=== PATIENT | female | born 1955 | race Caucasian/White ===

== ENCOUNTER 2018-12-29 08:58 | Inpatient (IN) | payer OTHER ==
[~2018-12-29] VITALS: Ht 157.5 cm; Wt 79.9 kg
[2018-12-29] MEDS ORDERED: KETOROLAC TROMETHAMINE 30 MG/ML VIAL IV STA (09:10)
[2018-12-29] MEDS ORDERED: FAMOTIDINE 20 MG/2 ML VIAL IV STA (09:10)
[2018-12-29] MEDS ORDERED: SODIUM CHLORIDE 0.9% 1000ML 1,000 ML IV ONE (09:15)
[2018-12-29] MEDS ORDERED: DICYCLOMINE HCL 20 MG/2 ML VIAL IM ONE (09:15)
[2018-12-29] MEDS ORDERED: METOCLOPRAMIDE HCL 10 MG/2ML VIAL IV ONE (09:15)
[2018-12-29] MEDS ORDERED: VASOTEC10 M1 PO (09:23)
[2018-12-29] MEDS ORDERED: METOPROLOL TART50 MG PO (09:23)
[2018-12-29 09:56] LABS: BASOPHILS % 0.2 % (0.0-1.0); EOSINOPHILS # (AUTO) 0.1 (0.0-0.4); EOSINOPHILS % 0.6 % (0.0-6.0); HEMATOCRIT 36.6 % (34.2-44.1); HEMOGLOBIN 11.7 g/dL (12.0-16.0); LYMPHOCYTES # (AUTO) 0.7 (1.0-3.2); LYMPHOCYTES % 6.6 % (18.0-39.1); MEAN CORPUSCULAR HEMOGLOBIN 27.3 pg (28-32); MEAN CORPUSCULAR VOLUME 85.5 fL (81-99); MONOCYTES # (AUTO) 1.4 (0.2-0.8); MONOCYTES % 12.2 % (4.4-11.3); NEUTROPHILS # (AUTO) 8.9 (2.1-6.9); NEUTROPHILS % 79.8 % (38.7-80.0); PLATELET COUNT 195 x10e3/uL (140-360); RED BLOOD COUNT 4.28 x10e6/uL (3.6-5.1); RED CELL DISTRIBUTION WIDTH 15.9 % (11.7-14.4)
[2018-12-29 10:17] LABS: ALANINE AMINOTRANSFERASE 117 IU/L (0-55); ALBUMIN 2.8 g/dL (3.5-5.0); ALBUMIN/GLOBULIN RATIO 0.6 (0.8-2.0); ALKALINE PHOSPHATASE 526 IU/L (40-150); ANION GAP 14.4 mmol/L (8-16); BLOOD UREA NITROGEN 8 mg/dL (7-26); BUN/CREATININE RATIO 10 (6-25); CALCIUM 9.8 mg/dL (8.4-10.2); CARBON DIOXIDE 23 mmol/L (22-29); CHLORIDE 103 mmol/L (98-107); EST GLOMERULAR FILTRATION RATE > 60 ML/MIN (60-); GLUCOSE 124 mg/dL (74-118); LIPASE 26 U/L (8-78); POTASSIUM 3.4 mmol/L (3.5-5.1); SODIUM 137 mmol/L (136-145)
[2018-12-29] MEDS ORDERED: IOPAMIDOL 370 MG/ML 200 ML INFUS..BTL INJ ONE (12:14)
[2018-12-29] MEDS ORDERED: SODIUM CHLORIDE 0.9% 50ML 50 ML ONE (12:14)
[2018-12-29 13:20] LABS: BILIRUBIN,URINE 2+ (NEGATIVE); CLARITY,URINE SL CLOUDY (CLEAR); COLOR,URINE YELLOW (YELLOW); KETONES,URINE NEGATIVE (NEGATIVE); LEUKOCYTE ESTERASE ,URINE NEGATIVE (NEGATIVE); NITRITE,URINE NEGATIVE (NEGATIVE); PROTEIN,URINE DIPSTICK TRACE (NEGATIVE); URINE UROBILINOGEN 1 mg/dL (0.2 - 1)
[2018-12-29 13:31] LABS: BACTERIA,URINE FEW /HPF; EPITHELIAL CELLS,URINE MANY /LPF; TRANSITIONAL EPI CELLS,URINE MODERATE
--- NOTE | 2018-12-29 14:42 | Diagnostic Imaging Report ---
EXAM: CT Abdomen and Pelvis WITH contrast INDICATION: ^Evaluate for pancreatitis , pseudicyst , H/O Stent ^20181229 ^1100 COMPARISON: None. TECHNIQUE: Abdomen and pelvis were scanned utilizing a multidetector helical scanner from the lung base to the pubic symphysis after administration of IV contrast. Coronal and sagittal reformations were obtained. Dose modulation, iterative reconstruction, and/or weight based adjustment of the mA/kV was utilized to reduce the radiation dose to as low as reasonably achievable. Routine protocol was performed. Scan was performed when during portal venous phase. IV CONTRAST: 100 mL of Isovue-370 ORAL CONTRAST: Water COMPLICATIONS: None RADIATION DOSE: Total DLP: 741.29 mGy*cm Estimated effective dose: (DLP x 0.015 x size factor) mSv CTDIvol has been reviewed. It is below the limits set by the Radiation Protocol Committee (RPC). FINDINGS: LINES and TUBES: None. LOWER THORAX: Mild bibasilar linear atelectasis/scarring. HEPATOBILIARY: No focal hepatic lesions. Pneumobilia and moderate intrahepatic biliary dilatation. Common bile duct is markedly distended up to 1.8 cm with air-fluid. There is a stent extending from the distal common bile duct to the duodenum. GALLBLADDER: Absent. SPLEEN: Splenomegaly measuring 14.9 cm. PANCREAS: Pancreas is markedly atrophic, especially the body and tail. Irregular markedly distended pancreatic duct is ill-defined and measures up to 1.7 cm (series 2, image 31). There is edema surrounding the pancreas. The gastric antrum/duodenum is inseparable from pancreatic head and there is a suspected fistulous connection (series 2, image 30). The duodenal wall is thickened and there is mucosal hyperenhancement of the second and third portion. Also splenic flexure colon is pulled medially and there is a focal area that is inseparable from the pancreatic tissue or inflammation (series 2, image 25). ADRENALS: No adrenal nodules KIDNEYS/URETERS: Kidneys enhance symmetrically. No hydronephrosis. No renal mass. Right renal superior pole hypodensities are too small to characterize. No stones. GI TRACT: No evidence of bowel obstruction. There are diverticula within the colon without evidence of diverticulitis. Appendix is not visualized. Also see above. PELVIC ORGANS/BLADDER: Unremarkable. LYMPH NODES: Multiple peripancreatic/mesenteric lymph nodes, measuring up to 0.8 cm. There are also subcentimeter retroperitoneal lymph nodes. VESSELS: Significant narrowing/almost occlusion of the portal and splenic veins at the confluence. There is occlusion of the superior mesenteric vein. PERITONEUM / RETROPERITONEUM: No free air or fluid. BONES: Degenerative changes of spine. SOFT TISSUES: Unremarkable. IMPRESSION: 1. Pancreas is markedly atrophic, especially the body and tail. Irregular markedly distended pancreatic duct is ill-defined and measures up to 1.7 cm. There is edema surrounding the pancreas, consistent with history of pancreatitis. 2. Significant narrowing/almost occlusion of the portal and splenic veins at the confluence. Occluded superior mesenteric vein. 3. The gastric antrum/duodenum is inseparable from pancreatic head and there is a suspected fistulous connection. The duodenal wall is thickened and there is mucosal hyperenhancement of the second and third portion, representing duodenitis. 4. Splenic flexure colon is pulled medially and there is a focal area that is inseparable from the pancreas/peripancreatic inflammation, concerning for developing fistula. 5. Moderate intrahepatic biliary dilatation and pneumobilia. The common bile duct is also dilated with air and fluid, measuring up to 1.8 cm. The distal common bile duct is not well-visualized and is probably occluded by the pancreatic edema/inflammation. There is a stent within distal common bile duct. 6. Several peripancreatic and mesenteric reactive lymph nodes. Signed by: Dr. Mike King MD on 12/29/2018 2:38 PM
[2018-12-29] MEDS ORDERED: SODIUM CHLORIDE 0.9% 1000ML 1,000 ML IV SCH (14:55)
[2018-12-29] MEDS ORDERED: SODIUM CHLORIDE FLUSH 10 ML SYR INJ PRN (15:00)
[2018-12-29] MEDS ORDERED: ONDANSETRON HCL INJ 2MG/ML 2ML 2 MG/ML VIAL IV PRN (15:00)
[2018-12-29] MEDS ORDERED: MORPHINE SULFATE 2 MG/ML SYR 1ML IV PRN (15:00)
[2018-12-29] MEDS ORDERED: MORPHINE SULFATE INJ 4 MG/ML INJ 1ML IV PRN (15:15)
--- OUTSIDE RECORDS SUMMARY | 2018-12-29 15:46 | XMS REPORT ---
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 Allergies, Adverse Reactions, Alerts This patient has no known allergies or adverse reactions. Medications This patient has no known medications. Results Test Description Test Time Test Comments Text Results Atomic Results Result Comments CT ABDOMEN/PELVIS W 2018-12-29 14:06:00 [place] [address] Patient Name: MONY FIORE MR #: [id number] : 1955 Age/Sex: 63/F Req #: [id number] Adm Physician: Ordered by: ALDA SANDERSON MD Report #: [id number] Location: ER Room/Bed: Procedure: [id number] CT/CT ABDOMEN/PELVIS W Exam Date: 12/29/18 Exam Time: 1100 REPORT STATUS: Signed EXAM: CT Abdomen and Pelvis WITH contrast INDICA TION: Evaluate for pancreatitis , pseudicyst , H/O Stent [id number] COMPARISON: None. TECHNIQUE: Abdomen and pelvis were scanned utilizing a multidetector helical scanner from the lung base to the pubic symphysis after administration of IV contrast. Coronal and sagittal reformations were obtained. Dose modulation, iterative reconstruction, and/or weight based adjustment of the mA/kV was utilized to reduce the radiation dose to as low as reasonably achievable. Routine protocol was performed. Scan was performed when during portal venous phase. IV CONTRAST: 100 mL of Isovue-370 ORAL CONTRAST: Water COMPLICATIONS: None RADIATION DOSE: Total DLP: 741.29 mGy*cm Estimated effective dose: (DLP x 0.015 x size factor) mSv CTDIvol has been reviewed. It is below the limits set by the Radiation Protocol Committee (RPC). FINDINGS: LINES and TUBES: None. LOWER THORAX: Mild bibasilar linear atelectasis/scarring. HEPATOBILIARY: No focal hepatic lesions. Pneumobilia and moderate intrahepatic biliary dilatation. Common bile duct is markedly distended up to 1.8 cm with air-fluid. There is a stent extending from the distal common bile duct to the duodenum. GALLBLADDER: Absent. SPLEEN: Splenomegaly measuring 14.9 cm. PANCREAS: Pancreas is markedly atrophic, especially the body and tail. Irregular markedly distended pancreatic duct is ill-defined and measures up to 1.7 cm (series 2, image 31). There is edema surrounding the pancreas. The gastric antrum/duodenum is inseparable from pancreatic head and there is a suspected fistulous connection (series 2, image 30). The duodenal wall is thickened and there is mucosal hyperenhancement of the second and third portion. Also splenic flexure colon is pulled medially and there is a focal area that is inseparable from the pancreatic tissue or inflammation (series 2, image 25). ADRENALS: No adrenal nodules KIDNEYS/URETERS: Kidneys enhance symmetrically. No hydronephrosis. No renal mass. Right renal superior pole hypodensities are too small to characterize. No stones. GI TRACT: No evidence of bowel obstruction. There are diverticula within the colon without evidence of diverticulitis. Appendix is not visualized. Also see above. PELVIC ORGANS/BLADDER: Unremarkable. LYMPH NODES: Multiple peripancreatic/mesenteric lymph nodes, measuring up to 0.8 cm. There are also subcentimeter retroperitoneal lymph nodes. VESSELS: Significant narrowing/almost occlusion of the portal and splenic veins at the confluence. There is occlusion of the superior mesenteric vein. PERITONEUM / RETROPERITONEUM: No free air or fluid. BONES: Degenerative changes of spine. SOFT TISSUES: Unremarkable. IMPRESSION: 1. Pancreas is markedly atrophic, especially the body and tail. Irregular markedly distended pancreatic duct is ill-defined and measures up to 1.7 cm. There is edema surrounding the pancreas, consistent with history of pancreatitis. 2. Significant narrowing/almost occlusion of the portal and splenic veins at the confluence. Occluded superior mesenteric vein. 3. The gastric antrum/duodenum is inseparable from pancreatic head and there is a suspected fistulous connection. The duodenal wall is thickened and there is mucosal hyperenhancement of the second and third portion, representing duodenitis. 4. Splenic flexure colon is pulled medially and there is a focal area that is inseparable from the pancreas/peripancreatic inflammation, concerning for developing fistula. 5. Moderate intrahepatic biliary dilatation and pneumobilia. The common bile duct is also dilated with air and fluid, measuring up to 1.8 cm. The distal common bile duct is not well- visualized and is probably occluded by the pancreatic edema/inflammation. There is a stent within distal common bile duct. 6. Several peripancreatic a nd mesenteric reactive lymph nodes. Signed by: Dr. Mike Lemus MD on 12/29/2018 2:38 PM Dictated By: MIKE LEMUS MD [id number] Transcribed By: SHERYL on 12/29/18 1438 COPY TO: ALDA SANDERSON MD
[2018-12-29] MEDS: SODIUM CHLORIDE 0.9% 1000ML 1,000 ML IV SCH (16:50)
[2018-12-29] MEDS: CIPROFLOXACIN 400 MG/D5W 200ML 200 ML IV SCH (18:04)
[2018-12-29] MEDS: FAMOTIDINE 20 MG/2 ML VIAL IV SCH (18:06)
--- NOTE | 2018-12-29 18:36 | NUR ---
RECEIVED REPORT FROM JOAN IN ER , AWAITING FOR PT TO ARRIVE TO FLOOR
[2018-12-29 19:25] VITALS: BP 156/88
[2018-12-29 19:43] VITALS: BP 170/99
[2018-12-29] MEDS ORDERED: PROMETHAZINE HC25 M1 PO (20:09)
[2018-12-29] MEDS ORDERED: CETIRIZINE HCL10 MG PO (20:12)
[2018-12-29] MEDS: METRONIDAZOLE 500MG/NS 100ML 100 ML IV SCH (22:10)
--- NOTE | 2018-12-29 23:25 | NUR ---
RN with Dr. Martinez bedside explaining to the patient about the pancreas and the recommendations. The patient had all questions answered and will follow up with care in [place]
[2018-12-30] VITALS (8 sets, daily range): BP systolic 134–184; BP diastolic 74–100
[2018-12-30] MEDS ORDERED: PANTOPRAZOLE 40 MG 10ML VIAL IV STA (00:33)
[2018-12-30] MEDS: PANTOPRAZOL 40MG/SOD CHL 0.9% 50 ML IV SCH ×5 (00:46→21:55)
[2018-12-30] MEDS: SODIUM CHLORIDE 0.9% 1000ML 1,000 ML IV SCH ×3 (00:46→23:16)
[2018-12-30] MEDS ORDERED: SODIUM CHLORIDE 0.9% 250ML 250 ML ONE ×2 (05:10→11:26)
[2018-12-30] MEDS: METRONIDAZOLE 500MG/NS 100ML 100 ML IV SCH ×3 (05:26→21:45)
--- NOTE | 2018-12-30 06:02 | Diagnostic Imaging Report ---
Examination: Single AP view of the chest. COMPARISON: None. INDICATION: Shortness of breath DISCUSSION: Lines/tubes: None. Lungs: Right lower lung linear atelectasis. Pleura: No pleural effusion or pneumothorax. Heart and mediastinum: Mild cardiomegaly. Bones and soft tissues: No acute bony abnormalities. IMPRESSION: 1. No acute cardiopulmonary abnormalities. Signed by: Dr. Sammy Cruz M.D. on 12/30/2018 5:59 AM
[2018-12-30 06:12] LABS: BASOPHILS % 0.2 % (0.0-1.0); EOSINOPHILS # (AUTO) 0.1 (0.0-0.4); HEMATOCRIT 28.8 % (34.2-44.1); LYMPHOCYTES # (AUTO) 0.9 (1.0-3.2); MEAN CORPUSCULAR HEMOGLOBIN 27.1 pg (28-32); MEAN CORPUSCULAR HGB CONC 30.9 g/dL (31-35); MEAN CORPUSCULAR VOLUME 87.5 fL (81-99); MONOCYTES # (AUTO) 0.7 (0.2-0.8); MONOCYTES % 13.3 % (4.4-11.3); NEUTROPHILS # (AUTO) 3.5 (2.1-6.9); NEUTROPHILS % 67.5 % (38.7-80.0); PLATELET COUNT 167 x10e3/uL (140-360); RED BLOOD COUNT 3.29 x10e6/uL (3.6-5.1); RED CELL DISTRIBUTION WIDTH 15.9 % (11.7-14.4)
[2018-12-30 06:24] LABS: HEMOGLOBIN 8.9 g/dL (12.0-16.0); INR 1.04; PROTHROMBIN TIME 14.1 seconds (11.9-14.5)
[2018-12-30 06:25] LABS: PARTIAL THROMBOPLASTIN TIME 33.2 seconds (23.8-35.5)
[2018-12-30 06:35] LABS: ALANINE AMINOTRANSFERASE 71 IU/L (0-55); ALBUMIN 2.2 g/dL (3.5-5.0); ALBUMIN/GLOBULIN RATIO 0.6 (0.8-2.0); ALKALINE PHOSPHATASE 391 IU/L (40-150); ANION GAP 11.3 mmol/L (8-16); BLOOD UREA NITROGEN 9 mg/dL (7-26); BUN/CREATININE RATIO 13 (6-25); CALCIUM 8.8 mg/dL (8.4-10.2); CARBON DIOXIDE 23 mmol/L (22-29); CHLORIDE 105 mmol/L (98-107); CREATININE, SERUM 0.68 mg/dL (0.57-1.11); EST GLOMERULAR FILTRATION RATE > 60 ML/MIN (60-); GLUCOSE 83 mg/dL (74-118); MAGNESIUM 1.9 MG/DL (1.3-2.1); PHOSPHORUS 3.4 MG/DL (2.3-4.7); POTASSIUM 3.3 mmol/L (3.5-5.1); SODIUM 136 mmol/L (136-145)
[2018-12-30] MEDS: CIPROFLOXACIN 400 MG/D5W 200ML 200 ML IV SCH ×3 (06:37→16:59)
[2018-12-30] MEDS: FAMOTIDINE 20 MG/2 ML VIAL IV SCH ×2 (08:59→16:59)
--- NOTE | 2018-12-30 09:00 | NUR ---
PAGED MD ESPINOSA FOR ORDERS ON BP IV MEDS TO COVER FOR ELEVATION OF BP THIS AM OF 175/90 AWAITING FOR CALL BACK
[2018-12-30] MEDS ORDERED: IRON DEXTRAN INJ 500 MG in SODIUM CHLORIDE 0.9% 500ML 500 ML IV PRN (09:45)
[2018-12-30] MEDS ORDERED: DEXAMETHASONE PHOS 10MG INJ 20 MG in SODIUM CHLORIDE 0.9% 50ML 50 ML IV ONE (10:00)
--- NOTE | 2018-12-30 10:24 | NUR ---
CALLED MRI STATES THEY WILL BE GETTING PT IN 30 MIN WILL GIVE INFED ORDERS WHEN PT GETS BACK FROM PROCEDURE
[2018-12-30 10:27] LABS: BASOPHILS % 0.2 % (0.0-1.0); EOSINOPHILS # (AUTO) 0.1 (0.0-0.4); HEMATOCRIT 30.2 % (34.2-44.1); HEMOGLOBIN 9.4 g/dL (12.0-16.0); LYMPHOCYTES # (AUTO) 0.8 (1.0-3.2); LYMPHOCYTES % 16.4 % (18.0-39.1); MEAN CORPUSCULAR HEMOGLOBIN 26.9 pg (28-32); MEAN CORPUSCULAR HGB CONC 31.1 g/dL (31-35); MEAN CORPUSCULAR VOLUME 86.5 fL (81-99); MONOCYTES # (AUTO) 0.6 (0.2-0.8); MONOCYTES % 12.8 % (4.4-11.3); NEUTROPHILS # (AUTO) 3.4 (2.1-6.9); NEUTROPHILS % 68.6 % (38.7-80.0); PLATELET COUNT 142 x10e3/uL (140-360); RED BLOOD COUNT 3.49 x10e6/uL (3.6-5.1)
[2018-12-30] MEDS ORDERED: IRON DEXTRAN INJ 50 MG in SODIUM CHLORIDE 0.9% 100 ML IV ONE (10:30)
[2018-12-30] MEDS ORDERED: FAMOTIDINE INJ 20 MG in SODIUM CHLORIDE 0.9% 50ML 50 ML IV ONE (10:30)
[2018-12-30] MEDS ORDERED: DIPHENHYDRAMINE HCL INJ 25 MG in SODIUM CHLORIDE 0.9% 50ML 50 ML IV ONE (10:30)
--- NOTE | 2018-12-30 10:33 | NUR ---
PT OFF UNIT FOR MRSP AT THIS TIME
--- NOTE | 2018-12-30 11:06 | NUR ---
REPAGED MD BRICENO AT THIS TIME
--- NOTE | 2018-12-30 11:32 | NUR ---
SPOKE WITH MD ESPINOSA REGARDING HIGH BP AND LOW POT. NEW ORDERS RECEIVED
[2018-12-30] MEDS: HYDRALAZINE HCL 20 MG/ML VIAL IV PRN ×2 (12:27→16:59)
[2018-12-30] MEDS ORDERED: POTASSIUM CHLORIDE 20MEQ/100ML 100 ML IV ONE (12:30)
[2018-12-30] MEDS: HEPARIN 25,000U/0.45% NS 250ML 1,100 UNIT in Premix Bag 250 ML IV SCH (13:00)
--- NOTE | 2018-12-30 14:17 | Diagnostic Imaging Report ---
EXAMINATION: MRI abdomen without contrast/MRCP. TECHNIQUE: Axial T1 in and out of phase, axial T2 fat sat, coronal T2 with and without fat sat, axial DWI and ADC MR images of the abdomen were performed. No intravenous gadolinium was given. Heavily T2-weighted MRCP images were also obtained including thick and thin slab MRCP ASSETT CLINICAL HISTORY: Pancreatitis, dilated CBD and pancreatic duct, abdominal pain COMPARISON: CT abdomen and pelvis 12/29/2018 FINDINGS: LACK OF GADOLINIUM DECREASES SENSITIVITY FOR DETECTION OF INTRA-ABDOMINAL PATHOLOGY. LOWER THORAX: Minimal bibasilar atelectasis. LIVER: Normal hepatic size and contour. No hepatic signal abnormality. No focal T2 hyperintense hepatic lesions. BILIARY: Moderate prominence of the central intrahepatic bile ducts, with presence of pneumobilia. The common bile duct is moderately to markedly dilated measuring 1.4 cm at the aaron hepatis and 1.3 cm at the pancreatic head. The duct comes to an abrupt tapered stop at the pancreatic head, where a linear T2 hypointense structure is noted consistent with previously visualized CBD stent. No filling defects are identified. Gallbladder is not visualized. PANCREAS: Ill-defined pancreas with moderate peripancreatic increased T2 signal consistent with residual visualized peripancreatic inflammatory changes. Dilated, irregular pancreatic duct, which measures up to 1.5 cm (series 5, image 28). No focal lesions. Atrophy of the pancreatic body and tail SPLEEN: Spleen is enlarged measuring 16.2 cm in AP diameter. ADRENALS: No nodules. KIDNEYS: No hydronephrosis or mass in the imaged portion of the kidneys. GI TRACT: No bowel dilation or evidence of obstruction. PERITONEUM / RETROPERITONEUM: Trace ascites in the inferior aspect of the spleen and along the left pericolic gutter (for example series 5, image 31 and series 8, image 19). LYMPH NODES: No upper abdominal lymphadenopathy. VESSELS: Marked narrowing of the portal confluence (series 5, image 25). Flow voids are still identified in the splenic vein, SMV. BONES AND SOFT TISSUES: No abnormal bone marrow signal. No soft tissue abnormalities.. IMPRESSION: 1. Moderate prominence of the central intrahepatic bile ducts, with presence of pneumobilia. Moderate to marked dilation of the CBD, which measures 1.4 cm at the aaron hepatis. The duct comes to an abrupt tapered stop at the pancreatic head, likely related to surrounding pancreatic head edema. No MR evidence of choledocholithiasis. A distal CBD stent is noted in place. 2. Gallbladder is not visualized. 3. Findings in the pancreas consistent with known pancreatitis. Marked dilation and irregularity of the pancreatic duct with associated atrophy are suggestive of sequela of chronic pancreatitis. No definite pancreatic duct intraductal filling defect/calculi are noted. Unable to assess for pancreatic necrosis given the lack of intravenous contrast. Previously described possible fistulous connection with the gastric antrum and colonic splenic flexure are better visualized on CT dated 12/29/2018. 4. Trace ascites inferior to the spleen and along the left pericolic gutter. 5. Splenomegaly. 6. Marked narrowing of the portal confluence, however, flow voids are still noted in the SMV and splenic vein, which speaking against complete occlusion Signed by: Dr. Edward Ruelas M.D. on 12/30/2018 2:14 PM
--- NOTE | 2018-12-30 15:00 | NUR ---
MD MARROQUIN HAS RESULTS OF MRCP. HAS NOW ORDERED A CLEAR LIQUID DIET FOR PT
--- NOTE | 2018-12-30 15:15 | NUR ---
Visit made by the Spiritual Care Department Pastoral Visitor, Ania Spencer. Pt sleeping soundly and no family present. Pastoral Visitor left a card describing availability of robotics software engineer and instructions on how to contact a robotics software engineer. LOKI CASEY Chief Ultrasound Technologist Spiritual Care Department O: [phone] Pager: [phone] ([phone] number calling from)
--- NOTE | 2018-12-30 16:07 | NUR ---
Nutrition Screen Note RD Recommendation for Physician: -ADAT to low fat per MD Plan of Care: RD following, monitoring for tolerance and adequacy Nutrition reason for involvement: Nutrition Risk Trigger/Diagnosis- MST and Pancreatitis Primary Diagnose(s): Pancreatitis PMH: No PMH recorded in EMR. Ht: 62 in Wt: 172 lb BMI: 31.5kg/m2 IBW: [address] Assessment: 12/30: 63 YOF admitted for pancreatitis. Pt reported that she has been dealing with pancreatitis since June of 2018. Pt is currently NPO and reports a poor appetite. Pt stated her UBW is around 167 lbs, suggesting pt has gained weight per EMR. Pt requested education on how to follow the appropriate diet for pancreatitis but asked if the RD could follow up with her on another day. Pt denied education and did not want to answer any other questions today. Chart reviewed. Labs and meds reviewed. Pt had a CT and MRI done. Will continue to monitor. Current Diet: NPO Malnutrition Evaluation (12/30) The patient does not meet criteria for a specified degree of malnutrition at this time. Will re-evaluate at follow-up as appropriate. Diet Education Needs Assessment: Diet education indicated, pt not agreeable at this time. Open to education at the next f/u. Nutrition Care Level: Low Signed: Rena Marion, MS, RD, LD
--- NOTE | 2018-12-30 16:38 | NUR ---
CASE MANAGEMENT INITIAL ASSESSMENT [employer] Machine Operator Helper to bedside to discuss plan of care with patient/family. CM/SW role and care transitions discussed. Anticipated discharge plan discussed along with duration of care. CM/SW discussed patients right to make decisions in care. CM/SW work hours given. Patient lives: Admit/Transfer: ER Hospital/ER visits since last admit:0 POA/Emergency contact: DTR TYE DARDEN [phone] Current/Previous Home Health: LIVE IN [place] AND WAS AT HER DTR'S VISITING FOR HER GRAND-DTR'S BIRTHDAY PCP/Follow-up Care: DR FOREST ROUSE Current/Previous DME: NONE Medications (referring to index hospitalization or the first time you were in the hospital) a. Were changes made in your medications when you were in the hospital on [date of index hospitalization]? Yes No Not sure Explain: Note: If no or not sure, please skip to question d b. Did you understand the changes? Yes No Explain: c. Were you able to obtain your new medications right away? Yes No n/a SNF only Explain: d. Were you able to take your medications like the doctor wanted you to? Yes No Explain: e. Did the hospital give you an accurate, easy to understand list of medications when you left? 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 Name and number was also written on the patients whiteboard. Patient verbalized understanding of discussion. CM will follow-up with ongoing discharge and transition of care needs.
--- NOTE | 2018-12-30 19:20 | NUR ---
REPORT TAKEN FROM AM RN.WALKING ROUNDS DONE.STABLE CONDITION.
--- NOTE | 2018-12-30 20:40 | NUR ---
Assessment done.tolerate the diet.no pain voiced.ptt is noted 66.2.no change .bed locked and in lowest position.phone and call light within reach.instructed to call for assistance as needed.
--- NOTE | 2018-12-30 23:27 | NUR ---
Dr.M Martinez is in the unit.no new orders.heparin running 11ml/hr.keep monitor the pt.
[2018-12-31] VITALS (10 sets, daily range): BP systolic 143–180; BP diastolic 74–101
[2018-12-31] MEDS: HYDRALAZINE HCL 20 MG/ML VIAL IV PRN (00:35)
--- NOTE | 2018-12-31 00:45 | NUR ---
BLOOD DRAWN AND SENT TO THE LAB.
--- NOTE | 2018-12-31 01:10 | NUR ---
PTT NOTED 68.7.NO CHANGE IN HEPARIN INFUSION.HEPARIN RUNNING @ 11ML/HR.BP CHECKED 147/87.HR104.
[2018-12-31] MEDS: PANTOPRAZOL 40MG/SOD CHL 0.9% 50 ML IV SCH ×5 (02:17→23:03)
[2018-12-31] MEDS: CIPROFLOXACIN 400 MG/D5W 200ML 200 ML IV SCH ×2 (05:27→22:13)
[2018-12-31] MEDS: METRONIDAZOLE 500MG/NS 100ML 100 ML IV SCH ×3 (06:40→23:03)
[2018-12-31 07:25] LABS: BASOPHILS % 0.2 % (0.0-1.0); HEMATOCRIT 29.7 % (34.2-44.1); HEMOGLOBIN 9.5 g/dL (12.0-16.0); LYMPHOCYTES # (AUTO) 1.1 (1.0-3.2); LYMPHOCYTES % 7.9 % (18.0-39.1); MEAN CORPUSCULAR HEMOGLOBIN 27.5 pg (28-32); MEAN CORPUSCULAR VOLUME 85.8 fL (81-99); MONOCYTES # (AUTO) 0.8 (0.2-0.8); MONOCYTES % 5.5 % (4.4-11.3); NEUTROPHILS # (AUTO) 11.9 (2.1-6.9); NEUTROPHILS % 83.9 % (38.7-80.0); PLATELET COUNT 265 x10e3/uL (140-360); RED BLOOD COUNT 3.46 x10e6/uL (3.6-5.1); RED CELL DISTRIBUTION WIDTH 16.1 % (11.7-14.4)
[2018-12-31] MEDS: HEPARIN 25,000U/0.45% NS 250ML 1,100 UNIT in Premix Bag 250 ML IV SCH (08:12)
--- NOTE | 2018-12-31 08:13 | NUR ---
PTT 93.8 HEPARIN DRIP DECREASED BY 100 UNITS PER PROTOCOL PTT RECHECK IN 6 HOURS AT 1413.
[2018-12-31] MEDS: FAMOTIDINE 20 MG/2 ML VIAL IV SCH ×2 (08:49→17:23)
[2018-12-31] MEDS: SODIUM CHLORIDE 0.9% 1000ML 1,000 ML IV SCH ×2 (10:00→17:45)
--- NOTE | 2018-12-31 11:31 | Progress Note ---
DATE: 12/31/2018 SUBJECTIVE: Ms. Ellis is a 63-year-old female with history of hypertension, hyperlipidemia, and pancreatitis since June 2018 with recurring admissions to the hospital, seven admissions since then, with history of pseudocyst. She had serial MRCPs done, she has a stent placed. She came to the emergency room complaining of abdominal pain. She was seen by Dr. Martinez. She was found to have occlusion of SMV, so Hematology consult was requested. The patient was started on IV heparin. OBJECTIVE: GENERAL: Today, she is awake and alert. She is feeling better. VITAL SIGNS: Temperature is 97.4 and blood pressure 143/86. HEART: Regular rate. LUNGS: Clear to auscultation. ABDOMEN: Soft. LABORATORY DATA: On the blood work; potassium is 3.3, creatinine is 0.68, and glucose is 83. White count is 14.1, hemoglobin is 9.5, and hematocrit is 29.7. MRCP showed moderate prominence of central intrahepatic bile ducts with presence of pneumobilia, [id number]-[id number] dilatation of . Gallbladder was not visualized. Pancreas showed pancreatitis with marked dilatation and irregularity of pancreatic duct, trace of ascites and splenomegaly. There is no complete occlusion of the SMV and splenic vein. ASSESSMENT: 1. Recurring chronic pancreatitis. 2. Dilated pancreatic duct. 3. 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 4. Duodenitis. 5. Hypertension. PLAN: At present time is to start the patient on clear liquid diet. Continue IV heparin. Continue to monitor white count and hemoglobin. The overall prognosis of the patient remains guarded. All this was discussed with the patient. All questions were answered to satisfaction. MD NATHAN Schilling/MODL /[id number]
--- NOTE | 2018-12-31 15:10 | NUR ---
PTT 64.4 THERAPEUTIC. RECHECK PTT IN 6 HOURS. HEPARIN DRIP REMAINS 10 ML/HR.
--- NOTE | 2018-12-31 15:46 | NUR ---
Follow-up Note RD Recommendation for Physician: -ADAT to low fat per MD. Plan of Care: RD following, monitoring for tolerance and adequacy Nutrition reason for involvement: Follow up Primary Diagnose(s): Pancreatitis. PMH: No PMH recorded in EMR. Ht:62 in Wt:173 lb BMI: 31.6 kg/m2 IBW:[address] Assessment: 12/31: Follow up: Provided pt with education regarding low fat diet and answered all questions. Discussed pt in rounds-pt is tolerating clear liquids. Recommended for diet advancement before d/c. Chart reviewed. Labs and meds reviewed. Will continue to monitor. 12/30: 63 YOF admitted for pancreatitis. Pt reported that she has been dealing with pancreatitis since June of 2018. Pt is currently NPO and reports a poor appetite. Pt stated her UBW is around 167 lbs, suggesting pt has gained weight per EMR. Pt requested education on how to follow the appropriate diet for pancreatitis but asked if the RD could follow up with her on another day. Pt denied education and did not want to answer any other questions today. Chart reviewed. Labs and meds reviewed. Pt had a CT and MRI done. Will continue to monitor. Current Diet: clear liquids Malnutrition Evaluation (12/31) The patient does not meet criteria for a specified degree of malnutrition at this time. Will re-evaluate at follow-up as appropriate. Diet Education Needs Assessment: Diet education indicated, pt agreeable Learner(s): pt Barriers: N/A Cultural/Language Modifications: N/A Readiness: Acceptance, eager Method: Handout, discussion Topics: Low fat diet, pancreatitis MNT hand out from the [employer] Understanding/Compliance: Expect good compliance, pt verbalized understanding. Nutrition Care Level: low Signed: Rena Marion, MS, RD, LD
--- NOTE | 2018-12-31 16:05 | NUR ---
RIGHT AC IV INFILTRATED UNABLE TO OBTAIN NEW IV. ATTEMPT MADE WITH US GUIDANCE WELL. ORDERS RECEIVED FOR PICC LINE INSERTION.
[2018-12-31 17:02] LABS: INR 1.08; PROTHROMBIN TIME 14.5 seconds (11.9-14.5)
--- NOTE | 2018-12-31 17:25 | NUR ---
PER DR. BEULAH SHEIKH TO HOLD HEPARIN DRIP FOR ONE HOUR FOR PICC LINE INSERTION.
--- NOTE | 2018-12-31 18:37 | NUR ---
HEPARIN DRIP HELD AT THIS TIME FOR PICC LINE PLACEMENT.
--- NOTE | 2018-12-31 19:51 | NUR ---
picc line inserted to left upper arm.
--- NOTE | 2018-12-31 19:55 | NUR ---
PATIENT HAS HIGH BLOOD PRESSURE. REFUSED PRN HYDRALAZINE STATED SHE DON'T FEEL GOOD AFTER SHE HAD THE MEDICATION. PAGED DR. ESPINOSA. WAITING FOR RESPONSE.
--- NOTE | 2018-12-31 20:22 | Diagnostic Imaging Report ---
EXAMINATION: CHEST XRAY LINE PLACEMENT INDICATION: Line placement ^PICC LINE PLACEMENT VERIFICATION ^[id number] ^1999 COMPARISON: December 30, 2018 FINDINGS: TUBES and LINES: Left peripherally inserted central venous catheter with distal tip over the low superior vena cava. LUNGS: Lungs are well inflated. Lungs are clear. There is no evidence of pneumonia or pulmonary edema. PLEURA: No pleural effusion or pneumothorax. HEART AND MEDIASTINUM: The cardiomediastinal silhouette is unremarkable. BONES AND SOFT TISSUES: No acute osseous lesion. Soft tissues are unremarkable. UPPER ABDOMEN: No free air under the diaphragm. IMPRESSION: No acute thoracic abnormality. Signed by: Dr. Chandrakant Kwan M.D. on 12/31/2018 8:19 PM
--- NOTE | 2018-12-31 20:42 | NUR ---
PAGED DR. ESPINOSA FOR 2ND TIME. WAITING FOR RESPONSE.
--- NOTE | 2018-12-31 20:59 | NUR ---
NEW ORDERS FROM DR. ESPINOSA RECEIVED.
[2018-12-31] MEDS: CLONIDINE HCL 0.1 MG TAB PO PRN (21:39)
[2019-01-01] VITALS (7 sets, daily range): BP systolic 125–187; BP diastolic 70–92
--- NOTE | 2019-01-01 01:00 | NUR ---
BLOOD PRESSURE IMPROVED 148/74 [facility].
[2019-01-01] MEDS: PANTOPRAZOL 40MG/SOD CHL 0.9% 50 ML IV SCH ×5 (03:14→23:00)
[2019-01-01] MEDS: SODIUM CHLORIDE 0.9% 1000ML 1,000 ML IV SCH ×3 (03:45→23:45)
[2019-01-01] MEDS: METRONIDAZOLE 500MG/NS 100ML 100 ML IV SCH ×3 (05:53→22:00)
[2019-01-01 06:00] LABS: BASOPHILS % 0.1 % (0.0-1.0); EOSINOPHILS % 0.2 % (0.0-6.0); HEMATOCRIT 25.5 % (34.2-44.1); HEMOGLOBIN 8.2 g/dL (12.0-16.0); LYMPHOCYTES # (AUTO) 1.7 (1.0-3.2); LYMPHOCYTES % 18.9 % (18.0-39.1); MEAN CORPUSCULAR HEMOGLOBIN 27.8 pg (28-32); MEAN CORPUSCULAR HGB CONC 32.2 g/dL (31-35); MEAN CORPUSCULAR VOLUME 86.4 fL (81-99); MONOCYTES # (AUTO) 0.7 (0.2-0.8); MONOCYTES % 7.7 % (4.4-11.3); NEUTROPHILS # (AUTO) 6.5 (2.1-6.9); NEUTROPHILS % 70.8 % (38.7-80.0); PLATELET COUNT 257 x10e3/uL (140-360); RED BLOOD COUNT 2.95 x10e6/uL (3.6-5.1); RED CELL DISTRIBUTION WIDTH 16.4 % (11.7-14.4)
[2019-01-01 06:24] LABS: ALANINE AMINOTRANSFERASE 32 IU/L (0-55); ALBUMIN/GLOBULIN RATIO 0.6 (0.8-2.0); ALKALINE PHOSPHATASE 276 IU/L (40-150); ANION GAP 8.3 mmol/L (8-16); CALCIUM 8.3 mg/dL (8.4-10.2); CARBON DIOXIDE 21 mmol/L (22-29); CHLORIDE 112 mmol/L (98-107); CREATININE, SERUM 0.69 mg/dL (0.57-1.11); EST GLOMERULAR FILTRATION RATE > 60 ML/MIN (60-); GLUCOSE 83 mg/dL (74-118); POTASSIUM 3.3 mmol/L (3.5-5.1); SODIUM 138 mmol/L (136-145)
--- NOTE | 2019-01-01 07:00 | NUR ---
The pt is awake and alert with iv to the right causing slight pain but declines removal at this time. The pt. ws advised that we won't need to rstart a peripheral as she has a double lumen PICC in place.
[2019-01-01 07:18] LABS: FOLATE 13.2 ng/mL (7.0-15.4)
[2019-01-01 07:30] LABS: BLOOD UREA NITROGEN 9 mg/dL (7-26); BUN/CREATININE RATIO 13 (6-25)
[2019-01-01 07:53] LABS: BAND NEUTROPHILS % (MANUAL) 2 %; HYPOCHROMASIA SLIGHT; LYMPHOCYTES % (MANUAL) 12 % (19-48); METAMYELOCYTES % (MANUAL) 1 % (0-0); MONOCYTES % (MANUAL) 5 % (3.4-9.0); MYELOCYTES % (MANUAL) 1 % (0-0); NEUTROPHILS % (MANUAL) 79 % (40-74); PLATELET ESTIMATE ADEQUATE; PLATELET MORPHOLOGY COMMENT NORMAL; RBC MORPHOLOGY COMMENT NORMAL
--- NOTE | 2019-01-01 08:30 | NUR ---
Dr. Barron rounded and noted that hgb and hct are significantly lower than previous result. Order received to obtain stat stool for occult blood and call results.
[2019-01-01] MEDS: FAMOTIDINE 20 MG/2 ML VIAL IV SCH ×2 (08:46→17:12)
[2019-01-01] MEDS: ENALAPRIL MALEATE 10 MG TAB PO SCH (08:47)
[2019-01-01] MEDS: METOPROLOL TARTRATE 50 MG TAB PO SCH (08:47)
[2019-01-01] MEDS: CIPROFLOXACIN 400 MG/D5W 200ML 200 ML IV SCH ×2 (10:32→21:18)
--- NOTE | 2019-01-01 11:15 | NUR ---
Stool results obtained and called to the with orders received to dc the heparin drip, warfarin and daily cbc. Addendum: 01/01/19 at 1134 by Jessica Gonzalez RN Daily cbc to start in am 01/02/19
--- NOTE | 2019-01-01 12:04 | Progress Note ---
DATE: 01/01/2019 SUBJECTIVE: Ms. Ellis is a 63-year-old female with history of hypertension, hyperlipidemia, history of pancreatitis since June 2019 with recurrent admissions to the hospital requiring several MRCP, pseudocyst drainage and stent placement, came to the emergency room complaining of abdominal pain, she went for MRCP here, she was started on heparin drip for probably occlusion of SMV. PHYSICAL EXAMINATION: GENERAL: Today, she is awake and alert. VITAL SIGNS: Temperature is 96.4, blood pressure 125/70. HEART: Regular rate. LUNGS: Clear to auscultation. ABDOMEN: Soft. LABORATORY DATA: On the blood work; potassium 3.3, creatinine 0.69, glucose is 83. White count 9.12, hemoglobin 8.2, hematocrit 25.5. ASSESSMENT: 1. Recurrent chronic pancreatitis. 2. Dilated pancreatic duct. 3. 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 4. Marked duodenitis. 5. Hypertension. PLAN: At present time is to advanced diet as tolerated. Continue IV heparin. Continue to monitor white count, hemoglobin. Continue PPIs. Once available, the patient is going to be started also on Coumadin to reach INR between 2 and 3. All this was discussed with Dr. Barron and with the patient. All questions were answered to satisfaction. MD NATHAN Schilling/CARMEN /[id number]
[2019-01-01] MEDS ORDERED: WARFARIN SOD 2.5 MG TAB PO SCH (17:00)
[2019-01-02] VITALS (8 sets, daily range): BP systolic 145–179; BP diastolic 77–94
[2019-01-02] MEDS: PANTOPRAZOL 40MG/SOD CHL 0.9% 50 ML IV SCH ×3 (04:10→14:00)
[2019-01-02 05:57] LABS: INR 1.24; PROTHROMBIN TIME 16.2 seconds (11.9-14.5)
[2019-01-02] MEDS: METRONIDAZOLE 500MG/NS 100ML 100 ML IV SCH ×3 (05:58→22:45)
[2019-01-02] MEDS: SUCRALFATE 1 GM TAB PO SCH ×4 (07:30→21:40)
[2019-01-02] MEDS ORDERED: CEFTRIAXONE SOD 1 GM/NS 50 ML 50 ML IV ONE (08:18)
[2019-01-02] MEDS: FAMOTIDINE 20 MG/2 ML VIAL IV SCH ×2 (08:45→16:22)
[2019-01-02] MEDS: ENALAPRIL MALEATE 10 MG TAB PO SCH (08:46)
[2019-01-02] MEDS: METOPROLOL TARTRATE 50 MG TAB PO SCH (08:46)
--- NOTE | 2019-01-02 08:56 | NUR ---
Patient alert and responsive, no respiratory distress, BP elevated and medicated with PRN clonodine, notified attending during rounds this morning of K 3.3 and orders to replace, IV protonix running and fluids running, having full liquids and tolerating somewhat, no nausea at the moment, will monitor
[2019-01-02] MEDS ORDERED: POTASSIUM CHLORIDE 20 MEQ TAB CR PO NR (09:00)
[2019-01-02] MEDS: CLONIDINE HCL 0.1 MG TAB PO PRN ×2 (09:10→21:40)
[2019-01-02] MEDS: CIPROFLOXACIN 400 MG/D5W 200ML 200 ML IV SCH ×2 (10:00→21:40)
--- NOTE | 2019-01-02 11:09 | Progress Note ---
DATE: 01/02/2019 SUBJECTIVE: Ms. Ellis is a 63-year-old female with history of hypertension, hyperlipidemia, history of pancreatitis started in June 2018 with recurring admissions, 7 admissions in the last months requiring a stent placement and she also has several MRCPs done, came to the emergency room complaining of abdominal pain. She had MRCP done. She was started on heparin probably for occlusion of SMV. Yesterday, the patient developed anemia and she was complaining of dark stools, so we think she has bleeding, so heparin was put on hold. We are monitoring hemoglobin and adjusting medications. PHYSICAL EXAMINATION: GENERAL: She is awake and alert. VITAL SIGNS: Temperature is 97.6, blood pressure is 156/79. HEART: Regular rate. LUNGS: Clear to auscultation. ABDOMEN: Soft. LABORATORY DATA: On the blood work; potassium 3.3, creatinine 0.69, glucose is 83. White count is 9.4, hemoglobin 8.2, hematocrit 25.5. ASSESSMENT: 1. History of recurrence of chronic pancreatitis. 2. Dilated pancreatic duct. 3. 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 4. Marked duodenitis. 5. Hypertension. 6. Anemia, probably secondary to GI bleed. PLAN: At the present time, heparin drip had been stopped due to bleeding and anemia. Continue PPI. Continue to monitor hemoglobin and hematocrit. Monitor for any recurrent bleeding. All these were discussed with the patient. All questions were answered to satisfaction. She also was started on continuous Sucralfate 1 g before meals and at bedtime. The overall prognosis of the patient is still guarded. MD NATHAN Schilling/MODL /[id number]
[2019-01-02 11:22] LABS: BASOPHILS % 0.3 % (0.0-1.0); EOSINOPHILS # (AUTO) 0.2 (0.0-0.4); EOSINOPHILS % 2.6 % (0.0-6.0); HEMATOCRIT 27.8 % (34.2-44.1); HEMOGLOBIN 8.7 g/dL (12.0-16.0); LYMPHOCYTES # (AUTO) 1.2 (1.0-3.2); LYMPHOCYTES % 14.5 % (18.0-39.1); MEAN CORPUSCULAR HEMOGLOBIN 27.5 pg (28-32); MEAN CORPUSCULAR HGB CONC 31.3 g/dL (31-35); MONOCYTES # (AUTO) 0.7 (0.2-0.8); MONOCYTES % 9.2 % (4.4-11.3); NEUTROPHILS # (AUTO) 5.4 (2.1-6.9); NEUTROPHILS % 68.1 % (38.7-80.0); PLATELET COUNT 310 x10e3/uL (140-360); RED BLOOD COUNT 3.16 x10e6/uL (3.6-5.1); RED CELL DISTRIBUTION WIDTH 16.3 % (11.7-14.4)
[2019-01-02] MEDS: SODIUM CHLORIDE 0.9% 1000ML 1,000 ML IV SCH ×2 (12:25→19:45)
--- NOTE | 2019-01-02 13:19 | NUR ---
SPOKE ABOUT PT IN ROUNDS, PT FROM OUT OF STATE, IS ON A HEP DRIP HAD BLOOD IN STOOLS SO STOPPED THE DRIP, WBC ARE UP HAS INFLAMED PANCREAS AND DUCTS ON PROTONIX AND ABX. WAITING ON PLAN.
[2019-01-02 13:30] LABS: EOSINOPHILS % (MANUAL) 3 % (0-7); HYPOCHROMASIA SLIGHT; LYMPHOCYTES % (MANUAL) 12 % (19-48); METAMYELOCYTES % (MANUAL) 1 % (0-0); MONOCYTES % (MANUAL) 10 % (3.4-9.0); MYELOCYTES % (MANUAL) 3 % (0-0); NEUTROPHILS % (MANUAL) 68 % (40-74); PLATELET ESTIMATE ADEQUATE; PLATELET MORPHOLOGY COMMENT NORMAL; PROMYELOCYTES % (MANUAL) 1 % (0-0); RBC MORPHOLOGY COMMENT NORMAL
--- NOTE | 2019-01-02 17:06 | NUR ---
Patient alert and responsive, BP 165/84, not enough to medicate with PRN, will monitor, no nausea, tolerating GI soft diet, will monitor
[2019-01-02 17:41] LABS: ALANINE AMINOTRANSFERASE 26 IU/L (0-55); ALBUMIN 2.3 g/dL (3.5-5.0); ALBUMIN/GLOBULIN RATIO 0.7 (0.8-2.0); ALKALINE PHOSPHATASE 254 IU/L (40-150); ANION GAP 9.6 mmol/L (8-16); BLOOD UREA NITROGEN < 5 mg/dL (7-26); BUN/CREATININE RATIO 7 (6-25); CALCIUM 8.2 mg/dL (8.4-10.2); CARBON DIOXIDE 21 mmol/L (22-29); CHLORIDE 110 mmol/L (98-107); CREATININE, SERUM 0.68 mg/dL (0.57-1.11); EST GLOMERULAR FILTRATION RATE > 60 ML/MIN (60-); GLUCOSE 90 mg/dL (74-118); POTASSIUM 3.6 mmol/L (3.5-5.1); SODIUM 137 mmol/L (136-145)
[2019-01-03] VITALS (7 sets, daily range): BP systolic 167–188; BP diastolic 85–96
[2019-01-03] MEDS: PANTOPRAZOL 40MG/SOD CHL 0.9% 50 ML IV SCH ×3 (00:28→06:05)
[2019-01-03] MEDS: SODIUM CHLORIDE 0.9% 1000ML 1,000 ML IV SCH (06:05)
[2019-01-03] MEDS: METRONIDAZOLE 500MG/NS 100ML 100 ML IV SCH ×2 (06:06→13:39)
[2019-01-03] MEDS: CLONIDINE HCL 0.1 MG TAB PO PRN ×2 (06:34→12:01)
[2019-01-03 06:37] LABS: BASOPHILS # (AUTO) 0.1 (0.0-0.1); BASOPHILS % 0.7 % (0.0-1.0); EOSINOPHILS # (AUTO) 0.3 (0.0-0.4); EOSINOPHILS % 3.8 % (0.0-6.0); HEMATOCRIT 32.6 % (34.2-44.1); LYMPHOCYTES # (AUTO) 1.2 (1.0-3.2); LYMPHOCYTES % 15.5 % (18.0-39.1); MEAN CORPUSCULAR HEMOGLOBIN 26.7 pg (28-32); MEAN CORPUSCULAR HGB CONC 30.7 g/dL (31-35); MEAN CORPUSCULAR VOLUME 87.2 fL (81-99); MONOCYTES # (AUTO) 0.6 (0.2-0.8); MONOCYTES % 7.8 % (4.4-11.3); NEUTROPHILS % 67.2 % (38.7-80.0); PLATELET COUNT 249 x10e3/uL (140-360); RED BLOOD COUNT 3.74 x10e6/uL (3.6-5.1); RED CELL DISTRIBUTION WIDTH 16.3 % (11.7-14.4)
[2019-01-03 06:46] LABS: ALANINE AMINOTRANSFERASE 25 IU/L (0-55); ALBUMIN 2.5 g/dL (3.5-5.0); ALBUMIN/GLOBULIN RATIO 0.7 (0.8-2.0); ALKALINE PHOSPHATASE 257 IU/L (40-150); ANION GAP 9.5 mmol/L (8-16); BLOOD UREA NITROGEN < 5 mg/dL (7-26); CALCIUM 8.4 mg/dL (8.4-10.2); CARBON DIOXIDE 23 mmol/L (22-29); CHLORIDE 109 mmol/L (98-107); CREATININE, SERUM 0.72 mg/dL (0.57-1.11); EST GLOMERULAR FILTRATION RATE > 60 ML/MIN (60-); GLUCOSE 106 mg/dL (74-118); POTASSIUM 3.5 mmol/L (3.5-5.1); SODIUM 138 mmol/L (136-145)
[2019-01-03 06:49] LABS: BUN/CREATININE RATIO 7 (6-25)
--- NOTE | 2019-01-03 06:55 | NUR ---
handoff report received, patient aware of change. call rapp within reach and bed in lowest position.
[2019-01-03 07:46] LABS: LYMPHOCYTES % (MANUAL) 24 % (19-48); MONOCYTES % (MANUAL) 7 % (3.4-9.0); NEUTROPHILS % (MANUAL) 69 % (40-74)
[2019-01-03 07:47] LABS: PLATELET ESTIMATE ADEQUATE; PLATELET MORPHOLOGY COMMENT NORMAL; RBC MORPHOLOGY COMMENT NORMAL
[2019-01-03] MEDS: SUCRALFATE 1 GM TAB PO SCH ×3 (08:06→16:31)
[2019-01-03] MEDS: ENALAPRIL MALEATE 10 MG TAB PO SCH (08:57)
[2019-01-03] MEDS: FAMOTIDINE 20 MG/2 ML VIAL IV SCH ×2 (08:57→17:00)
[2019-01-03] MEDS: METOPROLOL TARTRATE 50 MG TAB PO SCH (08:57)
[2019-01-03] MEDS: CIPROFLOXACIN 400 MG/D5W 200ML 200 ML IV SCH (10:30)
--- NOTE | 2019-01-03 17:15 | Consultation ---
DATE OF CONSULTATION: 12/30/2018 HISTORY OF PRESENT ILLNESS: Hien Ellis is a 63-year-old white female referred to me for SMV occlusion. The patient had presented with abdominal pain. SOCIAL HISTORY: Noncontributory. FAMILY HISTORY: Noncontributory. ALLERGIES: REPORTED NONE. MEDICATIONS: At this time: 1. Cipro. 2. Metronidazole. 3. Protonix. 4. Sodium chloride. 5. Ondansetron. 6. Pepcid. 7. Morphine. REVIEW OF SYSTEMS: HEENT: Normal. CARDIAC: Normal. RESPIRATORY: Normal. GI: History of multiple episodes of pancreatitis. The patient also claims that she had pseudocyst of the pancreas. Her general farmworker has been following her. : Normal. MUSCULOSKELETAL: Normal. SKIN AND BREASTS: Normal. NEUROENDOCRINE: Essentially normal. PHYSICAL EXAMINATION: GENERAL: A moderately built female, anemic, no palpable adenopathy. HEART: Within normal limits. LUNGS: Clear. ABDOMEN: Obese. RECTAL: Deferred. CENTRAL NERVOUS SYSTEM: Essentially normal. EXTREMITIES: Essentially normal. LABORATORY DATA: Hemoglobin of 8.9, hematocrit 28.8, white count 5100, and platelets of 167,000. MCHC low at 30.9. Bilirubin 2.5, SGOT 30, SGPT 71, alkaline phosphatase high at 391. Sodium 136, potassium 3.3, chloride 105, CO2 23, BUN 9, creatinine 0.68, and glucose 83. CAT scan of the abdomen shows possible duodenal fistula. The patient also shows a stent in the distal common bile duct. The patient also has portal vein thrombosis, splenic vein thrombosis, and superior mesenteric vein thrombosis. IMPRESSION: 1. Anemia. 2. Hypokalemia. 3. High liver functions. 4. Hypoalbuminemia of 2.9. 5. Hyperglobulinemia of 4.9. 6. 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 9. Stent in the distal common bile duct. 10. 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 11. Status post cholecystectomy. 12. History of pseudocyst of the pancreas. PLAN/COMMENTS/SUGGESTIONS: Suggest full anticoagulation. Suggest stool for occult blood. Suggest thrombophilia. Stool for occult blood was reported positive. The patient was kept on heparin and Coumadin; however, the patient dropped a hemoglobin. Subsequently, heparin and Coumadin were stopped. Possibility of EGD was raised; however, the patient claims that her general farmworker has been in touch with Dr. Ajit Martinez, general farmworker that he has observed her carefully before that the had frontal dementia, the has flown back to the town in [place] where they [place] a farm. She feels comfortable with him. Subsequently, I have spoken to Dr. Rodney Hoover, who is taking call for Dr. Mir. I have spoken to Dr. Ajit Martinez that the patient can safely be discharged, then for followup with her own general farmworker. I have suggested the patient to make sure she gets all the records from here. MD KEYSHA Cochran/CARMEN /[id number] cc: MD Radha Bunn MD Monte E Orahood, MD
--- NOTE | 2019-01-03 17:31 | Discharge Summary ---
ADMITTING DIAGNOSES: 1. Acute on chronic pancreatitis. 2. History of chronic pancreatitis. 3. 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 4. Cholangitis. 5. Duodenitis. 6. Hypertensive heart disease. 7. Anemia secondary to chronic kidney disease. DISCHARGE DIAGNOSES: 1. Acute on chronic bronchitis, resolving. 2. Chronic pancreatitis. 3. Partial occlusion of superior mesenteric vein/splenic vein likely thrombosis. 4. Duodenitis. 5. Hypertension. 6. Acute on chronic anemia secondary to upper gastrointestinal bleeding. 7. Chronic anemia, secondary to chronic disease. HOSPITAL COURSE: This is a 63-year-old white woman, who has a history of chronic pancreatitis. She was admitted to [facility] with diagnosis of acute on chronic pancreatitis. CT of abdomen and pelvis on admission revealed findings consistent with an occlusion of the superior mesenteric vein, likely consistent with thrombosis. The patient was started on intravenous heparin, but unfortunately had to be stopped because of the hematochezia. The patient states she has a long history of chronic pancreatitis and all her physicians are at the [facility]. The patient did present to the hospital with elevated white blood cell count specifically 14,100 with 83% segmenters. On discharge, white blood cell count was 7400 with 67% segmenters. She did receive intravenous antibiotics during hospitalization namely ciprofloxacin and metronidazole, which she tolerated quite well. The patient's hospitalization was essentially unremarkable. The decision was made to discharge the patient home without any anticoagulation because of her episode of hematochezia. During hospitalization, the patient was seen by sustainability officer, Dr. Barron because of the superior mesenteric vein thrombosis and by General Surgery, Dr. Maxime Yang. CONDITION ON DISCHARGE: Stable with an overall fair prognosis. DISCHARGE MEDICATIONS: 1. Protonix 40 mg daily. 2. Zofran 8 mg p.o. b.i.d. p.r.n. nausea. 3. Carafate 1 g q.i.d. 4. Metoprolol tartrate 50 mg daily. 5. Enalapril 10 mg daily. FOLLOWUP INSTRUCTIONS: The patient is instructed to follow up with her gastrointestinal specialist at [facility] as soon as possible. MD BLOSOSM Almonte/LICOL /[id number] cc: MD Colton Farfan MD
[2019-01-03] MEDS ORDERED: PANTOPRAZOLE SO40 MG PO (17:37)
[2019-01-03] MEDS ORDERED: ZOFRAN8 MG PO (17:37)
--- NOTE | 2019-01-03 18:31 | NUR ---
patient alert and oriented. discharge instructions given to patient and daughter, both verbalized understanding. PICC line discontinued at this time, catheter in tact and dressing applied. Patient to be wheeled out to personal auto for daughter to drive home.
[2019-01-04] MEDS ORDERED: PANTOPRAZOLE SOD 40 MG TABEC PO SCH ×2 (07:30)
== END 2019-01-03 18:31 | disposition home or self-care (01) | DRG 438 ==
LOC: ER 08:58 → ERHOLD 15:44 → MED/SURG 19:26
PROVIDERS: ADMIT Internal Medicine; ATTEND Internal Medicine
PROC: 02HV33Z Insertion of Infusion Device into Superior Vena Cava, Percutaneous Approach (ICD-10-PCS; principal; 2018-12-31)
PROC: B548ZZA Ultrasonography of Superior Vena Cava, Guidance (ICD-10-PCS; 2018-12-31)
DX: K85.90 Acute pancreatitis without necrosis or infection, unspecified (principal); I81 Portal vein thrombosis; I82.890 Acute embolism and thrombosis of other specified veins; K31.6 Fistula of stomach and duodenum; K83.09 Other cholangitis; K86.1 Other chronic pancreatitis; K86.89 Other specified diseases of pancreas; Z88.0 Allergy status to penicillin; Z88.8 Allergy status to other drugs, medicaments and biological substances; Z82.49 Family history of ischemic heart disease and other diseases of the circulatory system; K29.80 Duodenitis without bleeding; I10 Essential (primary) hypertension; D64.9 Anemia, unspecified; E87.6 Hypokalemia; R94.5 Abnormal results of liver function studies; R77.1 Abnormality of globulin; Z90.49 Acquired absence of other specified parts of digestive tract; D63.8 Anemia in other chronic diseases classified elsewhere; E78.5 Hyperlipidemia, unspecified
CPT/HCPCS: 36415; 36569; 71045; 74177; 74181; 80053; 81001; 81241; 81400; 82270; 82607; 82746; 83690; 83735; 84100; 85025; 85045; 85300; 85303; 85306; 85379; 85610; 85730; 86039; 99284; J0360; J0500; J0696; J1100; J1200; J1644; J1750; J1885; J2270; J2405; J2765; J3480; J7030; J7040; J7050; Q9967